=== PATIENT | male | born 1985 | race African-American/Black ===

== ENCOUNTER 2017-02-26 02:01 | Emergency (ER) | payer SELFPAY ==
[~2017-02-26] VITALS: Ht 180.3 cm; Wt 80.0 kg
[2017-02-26] MEDS ORDERED: KETOROLAC 60MG/2ML VIAL IM ONE (02:45)
[2017-02-26 03:45] VITALS: BP 130/86
== END 2017-02-26 04:58 | disposition home or self-care (01) ==
LOC: ER 02:01
DX: S62.314A Displaced fracture of base of fourth metacarpal bone, right hand, initial encounter for closed fracture (principal); Z88.0 Allergy status to penicillin; W22.01XA Walked into wall, initial encounter; Y93.89 Activity, other specified; Y92.9 Unspecified place or not applicable; Y99.8 Other external cause status
CPT/HCPCS: 29125; 73130; 96372; 99284; J1885; Z7610

== ENCOUNTER 2020-04-11 22:54 | Emergency (ER) | payer MEDICAID ==
[~2020-04-11] VITALS: Ht 172.7 cm; Wt 77.0 kg
[2020-04-11] MEDS ORDERED: LIDOCAINE HCL/EPINEPHRINE 1%-EPI 1:100,000 30 ML VIAL INFIL ONE (23:15)
[2020-04-11] MEDS ORDERED: LIDOCAINE HCL/EPINEPHRINE 1%-EPI 1:100,000 20 ML VIAL INFIL SCH (23:18)
[2020-04-12 00:10] VITALS: BP 131/74
== END 2020-04-12 00:49 | disposition home or self-care (01) ==
LOC: ER 22:59
DX: S01.81XA Laceration without foreign body of other part of head, initial encounter (principal); W01.0XXA Fall on same level from slipping, tripping and stumbling without subsequent striking against object, initial encounter; Y93.89 Activity, other specified; Y92.89 Other specified places as the place of occurrence of the external cause; Y99.8 Other external cause status; F12.10 Cannabis abuse, uncomplicated; Z88.0 Allergy status to penicillin
CPT/HCPCS: 12013; 99283; J3490